=== PATIENT | male | born 1940 | race Caucasian/White ===

== ENCOUNTER 2016-09-21 20:32 | Emergency (ER) | payer MEDICARE, OTHER ==
[2016-09-21] MEDS ORDERED: Lidocaine 2% Jelly 10 ML Urojet ONE (20:44)
[2016-09-21 21:06] VITALS: BP 111/65
[2016-09-21] MEDS ORDERED: Lidocaine 2% Jelly 10 ML Urojet MUCMEM ONE (21:39)
--- NOTE | 2016-09-21 21:42 | EDM.PDOC ---
ED HPI GENERAL MEDICAL PROBLEM - General Chief Complaint: Genitourinary Problem Stated Complaint: CATHETER PLUGGED Time Seen by Provider: 09/21/16 21:39 Source of Information: Reports: Patient History Limitations: Reports: No Limitations - History of Present Illness INITIAL COMMENTS - FREE TEXT/NARRATIVE: History of present illness: [Patient comes in with a clogged catheter he hasn't had any output all day in a skilled distended bladder. Spin in 2 weeks. He's basically here to have his catheter switched out. He's had no fever] Review of systems: As per history of present illness and below otherwise all systems reviewed and negative. Past medical history: As per history of present illness and as reviewed below otherwise noncontributory. Surgical history: As per history of present illness and as reviewed below otherwise noncontributory. Social history: No reported history of drug or alcohol abuse. Family history: As per history of present illness and as reviewed below otherwise noncontributory. Physical exam: HEENT: Atraumatic, normocephalic, Lungs: Clear to auscultation, Heart: S1S2, regular, Abdomen: He had suprapubic swelling before switching out the catheter Extremities: Atraumatic, negative for cords or calf pain. Neurovascular unremarkable. Neuro: Awake, alert, oriented. Exam nonfocal. Diagnostics: [] Therapeutics: [Our nurse Guillermo switched up catheter and do the job patient is very happy result he left feeling much better] Impression: [Nonfunctioning Indwelling [place] catheter] Plan: [Followup as needed] Definitive disposition and diagnosis as appropriate pending reevaluation and review of above. Bladder Pain Score (Numeric/FACES): 10 - Related Data Allergies Allergy/AdvReac Type Severity Reaction Status Date / Time Penicillins Allergy Cannot Verified 09/21/16 21:03 Remember Home Meds: Home Meds . [Unable to Verify Home Med List] 09/21/16 [History] Past Medical History HEENT History: Reports: Cataract Cardiovascular History: Reports: Hypertension Genitourinary History: Reports: Retention, Urinary Musculoskeletal History: Reports: Arthritis, Back Pain, Chronic - Past Surgical History HEENT Surgical History: Reports: Cataract Surgery Social & Family History - Tobacco Use Smoking Status *Q: Never Smoker - Caffeine Use Caffeine Use: Reports: Coffee - Recreational Drug Use Recreational Drug Use: No ED ROS GENERAL - Review of Systems Review Of Systems: ROS reveals no pertinent complaints other than HPI. ED EXAM, RENAL/ - Physical Exam Exam: See Below Course - Vital Signs Last Recorded V/S: Last Vital Signs Temp 37.2 C 09/21/16 21:06 Pulse 73 09/21/16 21:06 Resp 16 09/21/16 21:06 BP 111/65 09/21/16 21:06 Pulse Ox 93 L 09/21/16 21:06 - Orders/Labs/Meds Meds: Medications Discontinued Medications Generic Name Dose Route Start Last Admin Trade Name Freq PRN Reason Stop Dose Admin Lidocaine HCl Confirm 09/21/16 20:44 Xylocaine 2% Jelly Administered 09/21/16 20:45 Dose 10 ml .ROUTE .STK-MED ONE Departure - Departure Time of Disposition: 21:41 Disposition: Home, Self-Care 01 Condition: good Clinical Impression: Complication of indwelling urinary catheter Qualifiers: Device complication type: unspecified Encounter type: initial encounter - Discharge Information Forms: ED Department Discharge Additional Instructions: Were happy we can help you in our available anytime you need us.
[2016-09-21] MEDS ORDERED: Cephalexin 250 MG Cap PO ONE (21:50)
== END 2016-09-21 22:05 | disposition home or self-care (01) ==
LOC: JP.ED 20:32
DX: T83.9XXA Unspecified complication of genitourinary prosthetic device, implant and graft, initial encounter (principal); Z88.0 Allergy status to penicillin; Z98.49 Cataract extraction status, unspecified eye
CPT/HCPCS: 99283; A9270; 99282